=== PATIENT | female | born 1960 | race Caucasian/White ===

== ENCOUNTER → 2017-04-16 | Outpatient (CLI) | payer OTHER | LOC: MC.RAD 04-10 10:00 | DX: Z12.31 Encounter for screening mammogram for malignant neoplasm of breast (principal) ==

== ENCOUNTER → 2017-08-04 | Outpatient (REF) ==
[2017-08-04 19:08] LABS: C-REACTIVE PROTEIN 4.6 mg/dL (0.0-0.9)
[2017-08-04 19:36] LABS: THYROID STIMULATING HORMONE 1.15 uIU/mL (0.465-4.680)
== END ==
LOC: ZLAB.WCH 18:12
PROVIDERS: Internal Medicine
DX: Z01.89 Encounter for other specified special examinations (principal)

== ENCOUNTER → 2018-05-04 | Outpatient (CLI) | payer OTHER | LOC: MC.RAD 09:32 | DX: Z12.31 Encounter for screening mammogram for malignant neoplasm of breast (principal) ==

== ENCOUNTER → 2019-05-06 | Outpatient (CLI) | payer OTHER | LOC: MC.RAD 10:30 | DX: Z12.31 Encounter for screening mammogram for malignant neoplasm of breast (principal); N64.89 Other specified disorders of breast ==

== ENCOUNTER → 2019-05-10 | Outpatient (CLI) | payer OTHER | LOC: MC.RAD 13:00 | DX: Z12.31 Encounter for screening mammogram for malignant neoplasm of breast (principal); N64.89 Other specified disorders of breast | CPT/HCPCS: G0279 ==

== ENCOUNTER → 2020-05-15 | Outpatient (CLI) | payer OTHER | LOC: MC.RAD 08:30 | DX: Z12.31 Encounter for screening mammogram for malignant neoplasm of breast (principal) ==

== ENCOUNTER → 2021-05-29 | Outpatient (CLI) | payer OTHER | LOC: MC.RAD 05-22 14:15 | DX: Z12.31 Encounter for screening mammogram for malignant neoplasm of breast (principal) ==

== ENCOUNTER → 2022-07-15 | Outpatient (CLI) | payer BC | LOC: MC.RAD 11:41 | DX: Z12.31 Encounter for screening mammogram for malignant neoplasm of breast (principal) ==

== ENCOUNTER 2023-06-22 17:38 | Emergency (ER) | payer BC ==
[~2023-06-22] VITALS: Ht 157.5 cm; Wt 84.1 kg
[2023-06-22 17:50] VITALS: TEMP 98
[2023-06-22] MEDS ORDERED: CELEXA 20MG20 MG/TAB PO (17:58)
[2023-06-22] MEDS ORDERED: FARXIGA5 PO (17:58)
[2023-06-22] MEDS ORDERED: ALDACTONE 25MG25 M1 PO (17:59)
[2023-06-22] MEDS ORDERED: TOPROL XL 50MG50 MG PO (17:59)
[2023-06-22] MEDS ORDERED: COZAAR 25MG25 MG/TAB PO (18:00)
[2023-06-22] MEDS ORDERED: NS 1,000 ML IV ONE (18:00)
[2023-06-22] MEDS ORDERED: COUMADIN 22.5 MG/TAB PO (18:01)
[2023-06-22] MEDS ORDERED: COUMADIN 5MG5 MG/TAB PO (18:01)
[2023-06-22] MEDS ORDERED: ZOCOR 10MG10 MG PO (18:02)
[2023-06-22 18:11] LABS: BASO % 0.4 % (0.0-2.0); EOS # 0.1 K/mm3 (0.0-0.7); EOS % 0.9 % (0.0-4.0); GRAN # 6.7 K/mm3 (1.4-6.5); GRAN % 69.6 % (42.2-75.2); HEMATOCRIT 48.7 % (37.0-47.0); HEMOGLOBIN 16.2 g/dl (12.5-16.0); MEAN CELL VOLUME 94 fl (80.0-100.0); MEAN CORPUSCULAR HEMOGLOBIN 31 pg (27-31); MEAN CORPUSCULAR HGB CONC 33 g/dl (33.0-37.0); MEAN PLATELET VOLUME 9.6 fl (7.4-10.4); MONO # 0.8 K/mm3 (0.1-0.6); MONO % 7.9 % (1.7-9.3); PLATELET COUNT 173 K/mm3 (130-400); REDCELL DISTRIBUTION WIDTH-CV 14.3 % (11.5-14.5)
[2023-06-22 18:57] LABS: ALBUMIN 4.2 gm/dL (3.4-4.8); BILIRUBIN,TOTAL 0.6 mg/dL (0.2-1.2); CALCIUM 9.6 mg/dL (8.4-10.2); CREATININE, serum 0.98 mg/dL (0.57-1.11); POTASSIUM 4.2 mmol/L (3.5-4.5)
[2023-06-22 19:03] LABS: INR 3.3 (0.8-3.0); PROTHROMBIN TIME 35.3 SECONDS (9.7-12.8)
[2023-06-22 19:25] VITALS: BP 116/65; PULSE 59
[2023-06-22 19:28] LABS: COLLECTION METHOD CLEAN CATCH
[2023-06-22 19:38] LABS: URINE APPEARANCE Clear (CLEAR/HAZY); URINE COLOR Yellow (YELLOW); URINE GLUCOSE 2+ (NEGATIVE); URINE KETONE Negative (NEGATIVE); URINE NITRATE Negative (NEGATIVE); URINE PROTEIN(semi-quant) Negative (NEGATIVE); URINE UROBILINOGEN 0.2 E.U/dL (0.2-1.0)
[2023-06-22 19:39] LABS: URINE BLOOD 2+ (NEGATIVE)
[2023-06-22 19:46] LABS: URINE BACTERIA Moderate /hpf (NONE SEEN)
== END 2023-06-22 19:25 | disposition home or self-care (01) ==
LOC: COL.ER 17:38
PROVIDERS: Family Medicine
DX: R55 Syncope and collapse (principal)
CPT/HCPCS: J7030